=== PATIENT | female | born 1995 | race Two or more races ===

== ENCOUNTER 2019-02-20 14:53 | Inpatient (IN) | payer OTHER ==
[2019-02-20 17:11] LABS: RETICULOCYTES 2.01 % (0.5-1.5)
[2019-02-20 17:34] LABS: URIC ACID 7.9 mg/dL (2.6-7.2)
[2019-02-20 17:40] LABS: PH,URINE 7.5 (5.0-8.0); URINE APPEARANCE CLEAR; URINE BILIRUBIN NEGATIVE (NEGATIVE); URINE COLOR YELLOW; URINE GLUCOSE (UA) NEGATIVE (NEGATIVE); URINE KETONE NEGATIVE (NEGATIVE); URINE LEUK ESTERASE NEGATIVE (NEGATIVE); URINE NITRITE NEGATIVE (NEGATIVE); URINE PROTEIN 2+ (NEGATIVE); URINE UROBILINOGEN 0.2 mg/dL (0.2-1.0)
[2019-02-20 18:29] LABS: URINE WBC 0 /hpf (0-5)
[2019-02-20 18:30] LABS: URINE BACTERIA MODERATE /hpf (NEGATIVE)
[2019-02-20 20:01] LABS: BASO % 0.4 % (0-2.0); EOS % 0.5 % (0-4.5); HEMATOCRIT 40.4 % (32.4-45.2); HEMOGLOBIN 13.4 GM/dL (10.7-15.3); LYMPH % 19.1 % (8-40); MCH 29.3 pg (25.7-33.7); MCHC 33.1 g/dl (32.0-36.0); MEAN CELL VOLUME 88.7 fl (80-96); MEAN PLT VOLUME 9.4 fl (7.5-11.1); MONO % 5.5 % (3.8-10.2); NEUT % 74.5 % (42.8-82.8); PLATELET COUNT 153 K/MM3 (134-434); RBC 4.56 M/mm3 (3.60-5.2); RDW 14.7 % (11.6-15.6); WHITE BLOOD COUNT 12.2 K/mm3 (4.0-10.0)
[2019-02-20 20:13] LABS: INR 0.85 (0.83-1.09)
[2019-02-20 20:15] LABS: ACTIVATED PTT 26.4 SECONDS (25.2-36.5)
[2019-02-20 20:23] LABS: ALBUMIN 2.8 g/dl (3.4-5.0); BILIRUBIN,TOTAL 0.2 mg/dL (0.2-1); CALCIUM 9.1 mg/dL (8.5-10.1); CREATININE 0.6 mg/dL (0.55-1.3); POTASSIUM 4.4 mmol/L (3.5-5.1); TOT PROT 6.5 g/dl (6.4-8.2)
[2019-02-20 20:37] VITALS: BMI 38.9
[2019-02-20] MEDS ORDERED: CITRIC ACID/SODIUM CITRATE 30 ML UNIT-DOSE CUP PO ONE (21:14)
[2019-02-20] MEDS ORDERED: ELECTROLYTE-148 SOLN 1,000 ML IV SCH (21:15)
--- NOTE | 2019-02-20 21:34 | HP ---
Past Medical History - Primary Care Physician PCP:: Silas Garcia - Admission Chief Complaint: 37,3 weeks, pih , non reassuring fhr History of Present Illness: 23 yo f g1 o0 37,3 weeks by early sono c/o blurred vision, RUQ pain, has 2+ proteinuria, , bp 109/81, 2 + lower extrimetis edema , fhr cat 2 with persistent variable decel , cx clp , head out of pelvis, hx of LGA , option discussed advised c/s History Source: Patient Limitations to Obtaining History: Language Barrier - Past Medical History ...: 1 ...Para: 0 ...Term: 0 ...: 0 ...Spon : 0 ...Induced : 0 ...Multiple Gestation: 0 ...LMP: 05/16/18 ... Weeks Gestation by Dates: 40.0 ...EDC by Dates: 02/20/19 ...EDC by Sono: 03/10/19 - Past Surgical History Hx Myomectomy: No Hx Transabdominal Cerclage: No - Smoking History Smoking history: Never smoked Have you smoked in the past 12 months: No - Alcohol/Substance Use Hx Alcohol Use: No History of Substance Use: reports: None - Social History History of Recent Travel: No Home Medications - Allergies Allergies/Adverse Reactions: Allergies Allergy/AdvReac Type Severity Reaction Status Date / Time No Known Allergies Allergy Verified 02/20/19 16:36 - Home Medications Home Medications: Ambulatory Orders 19 Tablet 1 tab PO DAILY 02/20/19 Review of Systems - Review of Systems Constitutional: reports: Weakness Eyes: reports: Blurred Vision HENT: reports: No Symptoms Neck: reports: No Symptoms Cardiovascular: reports: No Symptoms Respiratory: reports: No Symptoms Gastrointestinal: reports: Other (RUQ pain) Genitourinary: reports: No Symptoms Breasts: reports: No Symptoms Reported Musculoskeletal: reports: No Symptoms Integumentary: reports: No Symptoms Neurological: reports: No Symptoms Endocrine: reports: No Symptoms Hematology/Lymphatic: reports: No Symptoms Psychiatric: reports: No Symptoms Physical Exam - Maternity Vital Signs: Vital Signs Temperature 98.3 F 02/20/19 19:50 Pulse Rate 84 02/20/19 19:50 Respiratory Rate 20 02/20/19 19:50 Blood Pressure 109/81 02/20/19 19:50 O2 Sat by Pulse Oximetry (%) Constitutional: Yes: Obese Eyes: Yes: WNL HENT: Yes: WNL Neck: Yes: WNL Cardiovascular: Yes: WNL Lungs: Clear to auscultation Breast(s): Yes: WNL - Abdominal Exam/OB Fundal Height: 40 Number of Fetuses: Single Presentation: Vertex Contractions: Yes Regularity: Irregular Intensity: Unaware Monitor Mode: External Heart Rate Location: [facility] Category: II Accelerations: None Decelerations: Variable - Vaginal Exam/OB Vaginal Bleediing: No Speculum Exam: No Dilatation (cm): closed Effacement (%): 0 Amniotic Membrane Status: Intact Presentation: Vertex/Position Station: -4 - Physical Exam Musculoskeletal: Yes: WNL Edema: Yes Edema: LLE: 2+, RLE: 2+ Integumentary: Yes: WNL Deep Tendon Reflex Grade: Normal +2 ...Motor Strength: WNL Psychiatric: Yes: WNL - Labs Lab Results: CBC, BMP 02/20/19 19:50 02/20/19 19:50 Hemorrhage Risk Assessment - Risk Factors Medium Risk Factors: Yes: None High Risk Factors: Yes: None Risk Score: 1 Risk Level: Medium Risk Problem List - Problems (1) with 37 or more completed weeks gestation Code(s): FAC1571 - (2) -induced hypertension in third trimester Code(s): O13.3 - GESTATIONAL HTN W/O SIGNIFICANT PROTEINURIA, THIRD TRIMESTER (3) Non-reassuring electronic monitoring tracing Code(s): O76 - ABNLT IN HEART RATE AND RHYTHM COMP LABOR AND DELIVERY Assessment/Plan admit for c/s
[2019-02-20] MEDS ORDERED: OXYTOCIN 20 UNITS in 0.9% NS 20 UNIT/1,000 ML INFUS.BAG IV ONE (22:05)
[2019-02-20] MEDS ORDERED: morphine SULFATE/Preservative Free 0.5 MG/ML (1cc Syringe) ONE (22:08)
[2019-02-20] MEDS ORDERED: BENZOCAINE 20% 57 GM BOTTLE TP PRN (22:16)
[2019-02-20] MEDS ORDERED: IBUPROFEN 600 MG TABLET (FP) PO PRN (22:16)
[2019-02-20] MEDS ORDERED: oxyCODONE HCL 5 MG TABLET PO PRN ×2 (22:16)
[2019-02-20] MEDS ORDERED: METHYLERGONOVINE MALEATE 0.2 MG/1 ML AMP IM PRN (22:16)
[2019-02-20] MEDS ORDERED: BENZOCAINE 28 GM HEMORRHOIDAL OINTMENT PR PRN (22:16)
[2019-02-20] MEDS ORDERED: WITCH HAZEL 50% (TUCKS) 40 PAD/JAR PAD TP PRN (22:16)
[2019-02-20] MEDS ORDERED: IBUPROFEN 800 MG/8 ML IJ IVPB PRN (22:16)
[2019-02-20] MEDS ORDERED: diphenhydrAMINE HCL 25 MG CAPSULE (FP) PO PRN (22:16)
[2019-02-20] MEDS ORDERED: ACETAMINOPHEN 325 MG TABLET (FP) PO PRN (22:17)
[2019-02-20] MEDS ORDERED: ceFAZolin SODIUM 1 GM VIAL ONE (22:26)
[2019-02-20] MEDS ORDERED: DEXTROSE 5%-LACTATED RINGERS 1,000 ML IV SCH (22:30)
[2019-02-20] MEDS ORDERED: OXYTOCIN 10 UNITS/ML VIAL ONE ×2 (22:34→22:43)
[2019-02-20] MEDS ORDERED: KETOROLAC TROMETHAMINE 30 MG/1 ML VIAL ONE (22:48)
--- NOTE | 2019-02-20 23:35 | OP ---
Operative Note - Note: Operative Date: 02/20/19 Pre-Operative Diagnosis: 37 weeks, pih, non reassuring FHR Operation: primary LST c/s Findings: live babo boy 9/o, meconium AF Surgeon: Silas Garcia Anesthesiologist/CMO: Radha Thomas Anesthesia: Spinal Specimens Removed: placenta Estimated Blood Loss (mls): 500 Operative Report Dictated: Yes
[2019-02-20] MEDS ORDERED: morphine SULFATE/Preservative Free 0.5 MG/ML (1cc Syringe) SPIN ONE (23:39)
[2019-02-20] MEDS ORDERED: ONDANSETRON 4 MG/2 ML VIAL IVPUSH PRN (23:39)
--- NOTE | 2019-02-21 00:40 | OP ---
DATE OF OPERATION: 02/20/2019 PREOPERATIVE DIAGNOSIS: 37.3 weeks, induced hypertension, large for gestational age, and nonreassuring heart rate. POSTOPERATIVE DIAGNOSIS: 37.3 weeks, induced hypertension, large for gestational age, and nonreassuring heart rate. PROCEDURE: Primary low segment transverse section. SURGEON: Adriel Garcia M.D. ANESTHESIA: Spinal. ANESTHESIOLOGIST: Radha Thomas M.D. SPECIAL EDUCATION BUS DRIVER: Arvin Lombardi ESTIMATED BLOOD LOSS: 500 mL. FINDINGS: A live baby boy Apgars 9 and 9, ROT position with meconium amniotic fluid. OPERATION: Patient was taken to operating room with adequate spinal anesthesia. Abdomen and perineum were prepped and draped. A Pfannenstiel abdominal skin incision was made. Abdominal wall was cut layer by layer until the peritoneum was exposed and incised. Upon entering the abdominal cavity, the lower uterine segment was identified, and uterovesical fold of the peritoneum was established. The bladder was pushed down. Then with the lower blade of the Oni retractor in the pelvis, a low transverse incision was made. The incision was extended laterally. Amniotic sac was entered. Meconium stained amniotic fluid noted. Head delivered. Nasopharynx was suctioned. A live baby was delivered without any difficulty. Placenta was delivered manually. Uterine cavity was cleared of all remaining tissue. Uterine incision was closed in 2 layers, the 1st layer with 0 Biosyn continuous suture, the 2nd layer with 0 Biosyn imbricating the 1st layer. Bladder flap was closed with 0 Biosyn continuous suture. Both tubes and ovaries were checked and were normal. No active bleeding was seen. All the lap, sponge, and instrument counts were correct. Peritoneum was closed with 0 Biosyn continuous suture. Muscles were brought together interrupted suture with 0 Biosyn. Fascia was closed with 0 Biosyn continuous sutures. Subcutaneous fat with interrupted sutures 0 Biosyn, and the skin was closed with cris. The patient tolerated the procedure well and left the OR in good condition. ADRIEL GARCIA M.D. /[id number]
[2019-02-21] MEDS ORDERED: OXYTOCIN 20 UNITS in 0.9% NS 20 UNIT/1,000 ML INFUS.BAG IV ONE (01:45)
[2019-02-21] MEDS: CEFAZOLIN 1 GM/D5W 1 GM/50 ML BAG IVPB SCH ×2 (06:30→14:48)
[2019-02-21 08:28] LABS: BASO % 0.4 % (0-2.0); EOS % 0.6 % (0-4.5); HEMATOCRIT 34.7 % (32.4-45.2); HEMOGLOBIN 11.5 GM/dL (10.7-15.3); LYMPH % 23.3 % (8-40); MCH 29.3 pg (25.7-33.7); MCHC 33.1 g/dl (32.0-36.0); MEAN CELL VOLUME 88.4 fl (80-96); MEAN PLT VOLUME 9.2 fl (7.5-11.1); MONO % 7.9 % (3.8-10.2); NEUT % 67.8 % (42.8-82.8); PLATELET COUNT 129 K/MM3 (134-434); RBC 3.93 M/mm3 (3.60-5.2)
--- NOTE | 2019-02-21 09:12 | PN ---
Progress Note (short form) - Note Progress Note: POD1 s/p csection under spinal and intrathecal duramorph. Pt is comfortable, has no pain, no HERNANDEZ, no back pain, no anesthetic issues/complications.
[2019-02-21] MEDS: ENOXAPARIN NA (PORCINE) 40 MG/0.4 ML DISP.SYRIN SQ SCH (09:29)
[2019-02-21] MEDS: OXYTOCIN 20 UNITS in 0.9% NS 20 UNIT/1,000 ML INFUS.BAG IV SCH ×2 (10:00→20:56)
[2019-02-21] MEDS ORDERED: CEPHALEXIN MONOHYDRATE 500 MG CAPSULE (UD) PO ONE (14:00)
[2019-02-21] MEDS: IBUPROFEN 600 MG TABLET (FP) PO PRN (15:50)
[2019-02-21] MEDS: ACETAMINOPHEN 325 MG TABLET (FP) PO PRN (15:51)
[2019-02-21] MEDS: SIMETHICONE 80 MG TAB.CHEW (FP) PO PRN (15:52)
[2019-02-21] MEDS ORDERED: BISACODYL 10 MG SUPP.RECT PR PRN (22:16)
[2019-02-22] MEDS: SIMETHICONE 80 MG TAB.CHEW (FP) PO PRN ×3 (01:16→15:11)
[2019-02-22] MEDS: ACETAMINOPHEN 325 MG TABLET (FP) PO PRN ×3 (01:17→15:12)
--- NOTE | 2019-02-22 08:57 | PN ---
Post Progress Note - Subjective Subjective: Patient is doing well, ambulating, tolerating PO, lochia decreased, voiding and attempting to breast feed Type of Delivery: Primary C/S Vital Signs: Vital Signs Temperature 98.7 F 02/22/19 05:43 Pulse Rate 98 H 02/22/19 05:43 Respiratory Rate 18 02/22/19 05:43 Blood Pressure 128/87 02/22/19 05:43 O2 Sat by Pulse Oximetry (%) 99 02/21/19 02:00 Breast Exam: Yes: Other (deferred) Uterus: Yes: Fundus Firm Incision: Yes: Dressing dry and intact, Ginette intact (no erythema, no induration, no crepitus, no fluctuance, no purulent discharge) Abdomen/GI: Yes: Abdomen soft, Tender (apprpriately) Lochia, amount: Small Extremities: Yes: Calves non-tender Activity: Ambulating - Labs Labs: CBC WBC 12.0 K/mm3 (4.0-10.0) H 02/21/19 06:45 RBC 3.93 M/mm3 (3.60-5.2) 02/21/19 06:45 Hgb 11.5 GM/dL (10.7-15.3) 02/21/19 06:45 Hct 34.7 % (32.4-45.2) 02/21/19 06:45 MCV 88.4 fl (80-96) 02/21/19 06:45 MCH 29.3 pg (25.7-33.7) 02/21/19 06:45 MCHC 33.1 g/dl (32.0-36.0) 02/21/19 06:45 RDW 15.0 % (11.6-15.6) 02/21/19 06:45 Plt Count 129 K/MM3 (134-434) L 02/21/19 06:45 MPV 9.2 fl (7.5-11.1) 02/21/19 06:45 Absolute Neuts (auto) 8.1 K/mm3 (1.5-8.0) H 02/21/19 06:45 Neutrophils % 67.8 % (42.8-82.8) 02/21/19 06:45 Lymphocytes % 23.3 % (8-40) D 02/21/19 06:45 Monocytes % 7.9 % (3.8-10.2) 02/21/19 06:45 Eosinophils % 0.6 % (0-4.5) 02/21/19 06:45 Basophils % 0.4 % (0-2.0) 02/21/19 06:45 Nucleated RBC % 0 % (0-0) 02/21/19 06:45 Retic Count 2.01 % (0.5-1.5) H 02/20/19 16:50 Haptoglobin 112 mg/dL (34-200) 02/20/19 16:50 Problem List - Problems (1) delivery delivered Assessment/Plan: POD # 2 in stable condition and adequate recovery -Continue care -encourage ambulation -Anticipate D/C home tomorrow Code(s): O82 - ENCOUNTER FOR DELIVERY WITHOUT INDICATION
[2019-02-22] MEDS: ENOXAPARIN NA (PORCINE) 40 MG/0.4 ML DISP.SYRIN SQ SCH (09:27)
[2019-02-22] MEDS: IBUPROFEN 600 MG TABLET (FP) PO PRN (15:11)
[2019-02-22] MEDS ORDERED: SENNOSIDES/DOCUSATE COMBO (SENNA PLUS) TABLET (UD) PO PRN (22:00)
[2019-02-23] MEDS: IBUPROFEN 600 MG TABLET (FP) PO PRN (08:08)
[2019-02-23] MEDS: SIMETHICONE 80 MG TAB.CHEW (FP) PO PRN (08:08)
[2019-02-23] MEDS: ACETAMINOPHEN 325 MG TABLET (FP) PO PRN (08:09)
[2019-02-23 08:15] LABS: BASO % 0.2 % (0-2.0); EOS % 2.4 % (0-4.5); HEMATOCRIT 31.9 % (32.4-45.2); HEMOGLOBIN 10.7 GM/dL (10.7-15.3); LYMPH % 20.5 % (8-40); MCH 29.5 pg (25.7-33.7); MCHC 33.6 g/dl (32.0-36.0); MEAN PLT VOLUME 8.2 fl (7.5-11.1); MONO % 6.5 % (3.8-10.2); NEUT % 70.4 % (42.8-82.8); PLATELET COUNT 164 K/MM3 (134-434); RBC 3.62 M/mm3 (3.60-5.2); RDW 15.1 % (11.6-15.6); WHITE BLOOD COUNT 12.2 K/mm3 (4.0-10.0)
[2019-02-23] MEDS: ENOXAPARIN NA (PORCINE) 40 MG/0.4 ML DISP.SYRIN SQ SCH (09:08)
[2019-02-23 09:19] VITALS: BP 125/80; PULSE 82; TEMP 98.4
--- NOTE | 2019-02-23 10:30 | DS ---
Physical Examination Vital Signs: Vital Signs Temperature 98.4 F 02/23/19 09:17 Pulse Rate 82 02/23/19 09:17 Respiratory Rate 20 02/23/19 09:17 Blood Pressure 125/80 02/23/19 09:17 O2 Sat by Pulse Oximetry (%) 99 02/21/19 02:00 Findings/Remarks: Patient is ambulating, voiding, tolerating PO, lochia decreased, breast feeding. PP/Post-op precautions discussed. Constitutional: Yes: Well Nourished, No Distress Eyes: Yes: WNL HENT: Yes: Atraumatic, Normocephalic Neck: Yes: Supple Cardiovascular: Yes: Regular Rate and Rhythm Respiratory: Yes: Regular Gastrointestinal: Yes: Soft ...Rectal Exam: Yes: Deferred Renal/: Yes: Other (deferred) Breast(s): Yes: Other (deferred) Musculoskeletal: Yes: WNL Extremities: Yes: WNL Edema: LLE: 1+, RLE: 1+ Integumentary: Yes: WNL Wound/Incision: Yes: Clean/Dry (No crepitus, induration, fluctuance, erythema, purulent discharge), Well Approximated, [place] Intact Labs: CBC, BMP 02/23/19 07:42 02/20/19 19:50 Discharge Summary Reason For Visit: LABOR Current Active Problems delivery delivered (Acute) Non-reassuring electronic monitoring tracing (Acute) with 37 or more completed weeks gestation (Acute) -induced hypertension in third trimester (Acute) Procedures: Principal: [facility] Hospital Course: Patient is on POD # 3 in stable condition, ambulating, tolerating PO and desire to go home. complicated by hypertensive disorder or and PTLCS due to distress Condition: Stable - Instructions Diet, Activity, Other Instructions: Please follow up instructions and precautions as explained by attending. Please follow up within a week for incision and blood pressure check. Call MD with any concerns Referrals: David Bradley MD [Staff Physician] - Disposition: HOME - Home Medications Comprehensive Discharge Medication List: Ambulatory Orders 19 Tablet 1 tab PO DAILY 02/20/19 Ferrous Sulfate [Iron] 325 mg PO DAILY 02/21/19
--- NOTE | 2019-02-25 13:28 | PATH ---
Surgical Pathology Report Patient Name: PAOLA DICK Med. Rec. #: [id number] /Age/Gender: 1995 (Age: 23) / F Account: [id number] Location: [facility] OBS/HEALTH UNIT SUPERVISOR Taken: 02/20/2019 Received: 02/21/2019 Reported: 02/25/2019 Physicians: Silas Garcia M.D. Specimen(s) Received PLACENTA Clinical History 23 year old female , 37.3 weeks gestational. No medical history Final Diagnosis PLACENTA: THIRD TRIMESTER PLACENTA. TRIVASCULAR CORD. MEMBRANES WITH NO DIAGNOSTIC ABNORMALITIES. Electronically Signed Patty Jung M.D. Gross Description The specimen is received fresh labeled placenta and is a 648 gram, 19 x18 x 2.9cm. placenta with attached membranes and umbilical cord. The attached membranes are glistening, translucent, and insert marginally. The umbilical cord measures 12 cm. in length and averages 1.1 cm. in diameter. The cord inserts centrally, 6 centimeter to the nearest margin. No true knots or strictures are identified. Cut surface of the umbilical cord reveals 3 vessels. Sectioning reveals red-brown, spongy parenchyma. No lesions are identified. Labor And Delivery Nurse sections are submitted in three cassettes as follows: 1- membrane rolls and umbilical cord; 2-3- full thickness sections of placenta KWS/02/24/2019 sulki/02/24/2019
== END 2019-02-23 14:15 | disposition home or self-care (01) | DRG 540 ==
LOC: JDEL 14:53 → JLDR 19:50 → J3W 02-21 02:14
PROVIDERS: ADMIT Obstetrics & Gynecology; ATTEND Obstetrics & Gynecology
PROC: 10D00Z1 Extraction of Products of Conception, Low, Open Approach (ICD-10-PCS; principal; 2019-02-20)
DX: O13.4 Gestational [pregnancy-induced] hypertension without significant proteinuria, complicating childbirth (principal); O36.63X0 Maternal care for excessive fetal growth, third trimester, not applicable or unspecified; O76 Abnormality in fetal heart rate and rhythm complicating labor and delivery; Z3A.37 37 weeks gestation of pregnancy; Z37.0 Single live birth
CPT/HCPCS: 36415; 36600; 59025; 80053; 81003; 82803; 82977; 83010; 84450; 84460; 84550; 85025; 85032; 85044; 85610; 85730; 86593; 86850; 86900; 86901; 88307-TC

== ENCOUNTER 2021-02-03 12:20 | Inpatient (IN) | payer OTHER ==
[2021-02-03 13:20] VITALS: BMI 36.6
[2021-02-03 13:33] LABS: BASO % 0.4 % (0-2.0); EOS % 0.6 % (0-4.5); HEMATOCRIT 40.7 % (32.4-45.2); HEMOGLOBIN 13.9 GM/dL (10.7-15.3); LYMPH % 25.9 % (8-40); MCH 30.6 pg (25.7-33.7); MCHC 34.1 g/dl (32.0-36.0); MEAN CELL VOLUME 89.7 fl (80-96); MONO % 5.9 % (3.8-10.2); NEUT % 67.2 % (42.8-82.8); PLATELET COUNT 133 K/MM3 (134-434); RBC 4.53 M/mm3 (3.60-5.2); RDW 14.9 % (11.6-15.6); WHITE BLOOD COUNT 8.7 K/mm3 (4.0-10.0)
[2021-02-03] MEDS ORDERED: CITRIC ACID/SODIUM CITRATE 30 ML UNIT-DOSE CUP PO ONE (14:00)
[2021-02-03] MEDS ORDERED: morphine SULFATE/PF 0.5 MG/ML (2cc Syringe - QUVA) ONE (14:12)
[2021-02-03] MEDS ORDERED: OXYTOCIN 20 UNITS in 0.9% NS 20 UNIT/1,000 ML INFUS.BAG IV ONE (14:15)
[2021-02-03] MEDS ORDERED: ePHEDrine SULFATE 50 MG/1 ML AMPULE ONE (14:17)
[2021-02-03] MEDS ORDERED: OXYTOCIN 10 UNITS/ML VIAL ONE (15:00)
[2021-02-03] MEDS ORDERED: morphine SULFATE/PF 0.5 MG/ML (2cc Syringe - QUVA) EP ONE (15:42)
[2021-02-03] MEDS ORDERED: ONDANSETRON 4 MG/2 ML VIAL IVPUSH PRN (15:42)
[2021-02-03] MEDS ORDERED: WITCH HAZEL 50% (TUCKS) 40 PAD/JAR PAD TP PRN (16:03)
[2021-02-03] MEDS ORDERED: diphenhydrAMINE HCL 25 MG CAPSULE (FP) PO PRN (16:03)
[2021-02-03] MEDS ORDERED: oxyCODONE HCL 5 MG TABLET PO PRN ×2 (16:03)
[2021-02-03] MEDS ORDERED: METHYLERGONOVINE MALEATE 0.2 MG/1 ML AMP IM PRN (16:03)
[2021-02-03] MEDS ORDERED: BENZOCAINE 28 GM HEMORRHOIDAL OINTMENT PR PRN (16:03)
[2021-02-03] MEDS ORDERED: BENZOCAINE 20% 57 GM BOTTLE TP PRN (16:03)
[2021-02-03] MEDS ORDERED: DEXTROSE 5%-LACTATED RINGERS 1,000 ML IV SCH (16:15)
[2021-02-03] MEDS ORDERED: OXYTOCIN 20 UNITS in 0.9% NS 20 UNIT/1,000 ML INFUS.BAG IV SCH (16:15)
[2021-02-03] MEDS ORDERED: ELECTROLYTE-148 SOLN 1,000 ML IV SCH (17:00)
[2021-02-03] MEDS: IBUPROFEN 800 MG/8 ML IJ IVPB PRN (17:23)
[2021-02-03] MEDS: CEFAZOLIN 1 GM/D5W 1 GM/50 ML BAG IVPB SCH (18:08)
[2021-02-04] MEDS: CEFAZOLIN 1 GM/D5W 1 GM/50 ML BAG IVPB SCH (01:59)
[2021-02-04 07:23] LABS: BASO % 0.4 % (0-2.0); HEMOGLOBIN 12.7 GM/dL (10.7-15.3); LYMPH % 22.5 % (8-40); MCH 31.1 pg (25.7-33.7); MCHC 34.5 g/dl (32.0-36.0); MEAN CELL VOLUME 90.2 fl (80-96); MEAN PLT VOLUME 9.3 fl (7.5-11.1); NEUT % 68.1 % (42.8-82.8); PLATELET COUNT 104 K/MM3 (134-434); RBC 4.09 M/mm3 (3.60-5.2); RDW 14.7 % (11.6-15.6); WHITE BLOOD COUNT 10.4 K/mm3 (4.0-10.0)
[2021-02-04] MEDS: IBUPROFEN 800 MG/8 ML IJ IVPB PRN (09:48)
[2021-02-04] MEDS: ENOXAPARIN NA (PORCINE) 40 MG/0.4 ML DISP.SYRIN SQ SCH (12:27)
[2021-02-04] MEDS ORDERED: BISACODYL 10 MG SUPP.RECT PR PRN (16:03)
[2021-02-04] MEDS: IBUPROFEN 600 MG TABLET (FP) PO PRN (18:40)
[2021-02-04] MEDS: ACETAMINOPHEN 325 MG TABLET (FP) PO PRN (18:41)
[2021-02-04] MEDS: SIMETHICONE 80 MG TAB.CHEW (FP) PO PRN (22:34)
[2021-02-05] MEDS: IBUPROFEN 600 MG TABLET (FP) PO PRN ×2 (07:24→19:28)
[2021-02-05] MEDS: ACETAMINOPHEN 325 MG TABLET (FP) PO PRN ×2 (07:24→19:28)
[2021-02-05] MEDS: ENOXAPARIN NA (PORCINE) 40 MG/0.4 ML DISP.SYRIN SQ SCH (09:37)
[2021-02-05] MEDS: SIMETHICONE 80 MG TAB.CHEW (FP) PO PRN (19:27)
[2021-02-05 20:41] VITALS: PULSE 96
[2021-02-05] MEDS ORDERED: SENNOSIDES/DOCUSATE COMBO (SENNA PLUS) TABLET (UD) PO PRN (22:00)
[2021-02-06 08:18] LABS: BASO % 0.4 % (0-2.0); HEMATOCRIT 36.2 % (32.4-45.2); HEMOGLOBIN 12.4 GM/dL (10.7-15.3); LYMPH % 26.3 % (8-40); MCH 30.9 pg (25.7-33.7); MCHC 34.3 g/dl (32.0-36.0); MEAN CELL VOLUME 90.1 fl (80-96); MEAN PLT VOLUME 8.3 fl (7.5-11.1); MONO % 6.1 % (3.8-10.2); NEUT % 64.2 % (42.8-82.8); PLATELET COUNT 129 K/MM3 (134-434); RBC 4.02 M/mm3 (3.60-5.2); RDW 14.7 % (11.6-15.6); WHITE BLOOD COUNT 10.7 K/mm3 (4.0-10.0)
[2021-02-06] MEDS: ENOXAPARIN NA (PORCINE) 40 MG/0.4 ML DISP.SYRIN SQ SCH (09:26)
[2021-02-06 10:52] VITALS: BP 137/94; TEMP 97.8
== END 2021-02-06 15:00 | disposition home or self-care (01) | DRG 540 ==
LOC: JLDR 12:20 → J3W 17:10
PROVIDERS: ADMIT Obstetrics & Gynecology; ATTEND Obstetrics & Gynecology
PROC: 10D00Z1 Extraction of Products of Conception, Low, Open Approach (ICD-10-PCS; principal; 2021-02-03)
DX: O34.211 Maternal care for low transverse scar from previous cesarean delivery (principal); Z37.0 Single live birth; O99.214 Obesity complicating childbirth; E66.9 Obesity, unspecified; Z3A.39 39 weeks gestation of pregnancy
CPT/HCPCS: 36415; 80053; 82962; 85025; 85610; 85730; 86780; 86850; 86900; 86901; 88307-TC; C9803; U0003; U0005

== ENCOUNTER 2024-06-27 04:07 | Day surgery (SDC) | payer OTHER ==
[2024-06-26 10:48] VITALS: BMI 44.1
[2024-06-27 07:39] VITALS: RESP 16
[2024-06-27] MEDS ORDERED: LACTATED RINGERS SOLUTION 1,000 ML IV SCH (10:15)
[2024-06-27] MEDS ORDERED: BUPIVACAINE HCL/PF 0.5% (5MG/ML) 10 ML VIAL ONE (10:29)
[2024-06-27] MEDS ORDERED: SUCCINYLCHOLINE CHLORIDE 200 MG/10 ML SYRINGE ONE ×2 (10:48→11:07)
[2024-06-27] MEDS ORDERED: ROCURONIUM BROMIDE 50 MG/5 ML SYRINGE ONE ×2 (10:48→10:55)
[2024-06-27] MEDS ORDERED: PROPOFOL 20 ML ONE ×2 (10:48→11:27)
[2024-06-27] MEDS ORDERED: PHENYLEPHRINE HCL 10 MG/1 ML SINGLE DOSE VIAL ONE (11:01)
[2024-06-27] MEDS: BUPIVACAINE HCL/PF 0.5% (5 MG/ML) 30 ML VIAL IJ ONE (11:09)
[2024-06-27] MEDS ORDERED: ACETAMINOPHEN INJECTION 100 ML ONE (12:01)
[2024-06-27] MEDS: ACETAMINOPHEN 1000 MG/100 ML BAG IVPB ONE (12:05)
[2024-06-27] MEDS ORDERED: ONDANSETRON 4 MG/2 ML VIAL ONE (12:31)
[2024-06-27] MEDS: ONDANSETRON 4 MG/2 ML VIAL IVPUSH PRN (12:36)
[2024-06-27 13:11] VITALS: TEMP 97.9
[2024-06-27 13:44] VITALS: BP 116/60; PULSE 80
== END 2024-06-27 14:08 | disposition home or self-care (01) ==
LOC: JASU-SURG 04:07
PROVIDERS: ATTEND Student in an Organized Health Care Education/Training Program
PROC: 0UT74ZZ Resection of Bilateral Fallopian Tubes, Percutaneous Endoscopic Approach (ICD-10-PCS; principal; 2024-06-27 09:30)
DX: Z30.2 Encounter for sterilization (principal)
CPT/HCPCS: 81025; 88305-TC; 94760; J0131